=== PATIENT | female | born 1960 | race Caucasian/White ===

== ENCOUNTER 2025-03-27 00:05 | Day surgery (SDC) | payer OTHER, SELFPAY ==
[2025-03-24 10:59] VITALS: BMI 32.7
--- NOTE | 2025-03-24 11:35 | PC.NURSE ---
Spoke with patient regarding medication _eliquis_. _Patient verbalizes understanding that the last dose is to be taken on _03/24/25_ and the Endoscopist will instruct them when to restart after the procedure.
--- OUTSIDE RECORDS SUMMARY | 2025-03-27 00:07 | XMS_ITS | Clinical Summary ---
Author Organization [facility] Address [address] [place] [address] Care Team Providers Care Director Of Pupil Personnel Program Name Role Phone Gabby Núñez MD Primary Care Provider Allergies Active Allergy Reactions Criticality Noted Date Comments Cephalosporins Rash Low 06/27/2011 Medications potassium chloride CR (KLOR-CON) 8 MEQ tablet 16 mEq daily. 06/13/2022 Active metoprolol succinate ER (TOPROL-XL) 50 MG 24 hr tablet 100 mg 2 (two) times a day. 05/22/2022 Active apixaban (ELIQUIS) 5 MG tablet Take 5 mg by mouth 2 (two) times daily. Active aspirin 81 MG chewable tablet Chew 81 mg by mouth daily. Active atorvastatin (LIPITOR) 10 MG tablet Take 10 mg by mouth daily. Active losartan-hydroCH LOROthiazide 100-12.5 MG Tab Take 1 tablet by mouth daily. Active traMADol (ULTRAM) 50 MG tabletIndication s:Acute Pain < 7 Day Supply Take 1 tablet (50 mg total) by mouth every 6 (six) hours as needed for Pain. Indications : Acute Pain < 7 Day Supply 20 tablet 07/26/2022 Active Social History Tobacco Use Types Packs/Day Years Used Date Smoking Tobacco: Never Alcohol Use Standard Drinks/Week Comments Never 0 (1 standard drink = 0.6 oz pur e alcohol) Comments Unknown Sex and Gender Information Value Date Recorded Sex Assigned at Not on file Legal Sex Female 7:53 AM CDT Gender Identity Not on file Sexual Orientation Not on file Last Filed Vital Signs Vital Sign Reading Time Taken Comments Blood Pressure 168/87 09/15/2022 7:55 PM EMPLOYMENT SPECIALIST Pulse 55 09/15/2022 7:55 PM EMPLOYMENT SPECIALIST Temperature 36.8 C (98.2 F) 09/15/2022 5:39 PM EMPLOYMENT SPECIALIST Respiratory Rate 19 09/15/2022 7:55 PM EMPLOYMENT SPECIALIST Oxygen Saturation 97% 09/15/2022 7:55 PM EMPLOYMENT SPECIALIST Inhaled Oxygen Concentration - - Weight 97.5 kg (215 lb) 09/15/2022 5:39 PM EMPLOYMENT SPECIALIST Height 172.7 cm (5' 8) 09/15/2022 5:39 PM EMPLOYMENT SPECIALIST Body Mass Index 32.69 09/15/2022 5:39 PM EMPLOYMENT SPECIALIST Plan of Treatment Health Maintenance Due Date Last Done Comments Cervical Cancer Screening Pa p Smear (Age 30 to 64) Every 3 Years 1960 Colorectal Cancer Screening Colonoscopy (10 Years) 1960 Annual Physical 1963 Hepatitis C 1978 Cervical Cancer Screening Pa p with HPV Testing (Age 30 to 64) Every 5 Years 1990 Cervical Cancer Screening wi th HPV 1990 Mammogram Screening 2000 Pneumococcal Vaccine: 50+ Years (1 of 1 - PCV) 2010 COVID-19 Vaccine (3 - 2023-2 5 season) 2024 03/24/2021, 03/03/2021 DTaP, Tdap and Td Vaccines ( 2 - Tdap) 09/19/2026 09/19/2016 RSV Immunization or 60+ Years (1 - 1-dose 75+ series) 2035 Zoster Vaccines Completed 05/26/2019, 03/18/2019 Meningococcal B Vaccine Aged Out No l onger eligible based on patient's age to complete this topic Meningococcal Vaccine Aged Out No arin angelo eligible based on patient's age to complete this topic RSV Immunizations Under 20 Months Aged Out No longer eligible b ased on patient's age to complete this topic Insurance [employer] Care Teams Director Of Pupil Personnel Program Relationship Specialty Start Date End Date Gabby Núñez MD [address] [place] [address] [place] [address] PCP - General FAMILY PRACTICE 11/21/21
--- OUTSIDE RECORDS SUMMARY | 2025-03-27 00:07 | XMS_ITS | Clinical Summary ---
Author Organization [facility] [address] Address [address] [place] [address] Care Team Providers Care Roving Department End Finder Name Role Phone Gabby Núñez MD Primary Care Provider Allergies Active Allergy Reactions Criticality Noted Date Comments Cephalexin Rash Medium Medications metoprolol XL (TOPROL XL) 50 mg 24 hr tablet take 1 tablet by oral route every day 90 0 3 Active Additional Information Patient taking differently:50 mgoral 2 times daily, Reported on 12/04/2024 apixaban (ELIQUIS) 5 mg tablet take 1 tablet by oral route 2 times every day 0 0 7 Active levocetirizine (XYZAL) 5 mg tablet take 1 tablet by oral route every day in the evening 0 0 7 Active atorvastatin (LIPITOR) 10 mg tablet TAKE 1 TABLET (10MG) BY ORAL ROUTE EVERY DAY 90 0 3 Active potassium chloride ER (KLOR-CON 8) 8 mEq CR tablet TAKE 2 TABLETS (16MEQ) BY MOUTH EVERY DAY WITH FOOD 180 1 3 Active aspirin 81 mg tablet Take 1 tablet (81 mg total) by mouth daily. 30 tablet 11 8 Active amLODIPine (NORVASC) 5 mg tablet Take 1 tablet (5 mg total) by mouth daily 2 Active losartan-hydroc hlorothiazide (HYZAAR) 100-25 mg per tablet Take 1 tablet by mouth daily Active pantoprazole DR (PROTONIX) 40 mg EC tablet Take 1 tablet (40 mg total) by mouth daily Active Active Problems Problem Noted Date Diagnosed Date PAF (paroxysmal atrial fibrillation) 05/22/2018 History of stroke 01/04/2017 Overview (05/31/2017): H/O: CVA (cerebrovascular accident) History of 2 strokes when on control Assessment & Plan (05/31/2017 3:57 PM CDT): History of 2 strokes when on control 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 therapy 0 01/04/2017 Overview (03/02/2017): Chronic anticoagulation Essential (primary) hypertension 01/04/2017 Overview (03/02/2017): Essential hypertension Ventricular tachycardia 01/04/2017 Overview (03/02/2017): Ventricular tachycardia Paroxysmal tachycardia 01/04/2017 Overview (03/02/2017): Tachycardia, paroxysmal Osteoarthritis 11/29/2012 Overview (01/12/2017): DJD (degenerative joint disease) Anemia 11/29/2012 Overview (01/12/2017): Anemia Mixed hyperlipidemia 11/29/2012 Overview (01/12/2017): Hyperlipidemia Resolved Problems Problem Noted Date Diagnosed Date Resolved Date Palpitations 11/29/2012 05/16/2019 Overview (01/12/2017): Palpitations Hypertension 11/29/2012 05/31/2017 Overview (01/12/2017): Hypertension Mitral valve prolapse 11/29/20122016 Overview (01/12/2017): Mitral valve prolapse Immunizations Immunization Administration Dates Next Due Influenza, Trivalent, Preservative Free, Intramu scular 07/24/2013 Surgical History Surgery Date Site/Laterality Comments OTHER SURGICAL HISTORY Stroke: Hospitalization OTHER SURGICAL HISTORY Dysfunctional uterine bleeding (DUB): endometrial ablation NOS OTHER SURGICAL HISTORY D&C Medical History Medical History Date Comments Cerebrovascular accident (CVA) (HCC) Stroke Hx Other Medical Dysfunctional u terine bleeding (DUB) Hyperlipidemia Hyperlipidemia Osteoarthritis Osteoarthritis Hypertension Hypertension Hx Other Medical Tubal Ligation Family History Medical History Relation Name Comments Hypertension Brother 1 Hypertension; Hyperlipidemia Brother 2 Hyperlipidemi a; Stroke Brother 3 Stroke; Other Brother 4 tachycardia; Diabetes Father Diabetes mellit us; Other Father palpitations; Osteoarthritis Mother Osteoarthriti s; Rheum arthritis Sister Rheumatoid a rthritis; Relation Name Status Comments Brother 1 Brother 2 Brother 3 Brother 4 Father Mother Sister Social History Tobacco Use Types Packs/Day Years Used Date Smoking Tobacco: Never Smokeless Tobacco: Never Tobacco Cessation:Counseling Given: Not Answered Alcohol Use Standard Drinks/Week Comments Yes 0 (1 standard drink = 0.6 oz pur e alcohol) Comments Unknown Sex and Gender Information Value Date Recorded Sex Assigned at Not on file 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 Gender Identity Not on file Sexual Orientation Not on file Obstetrics History Last Filed Vital Signs Vital Sign Reading Time Taken Comments Blood Pressure 132/76 12/04/2024 9:46 AM GRASS FARM LABORER Pulse 67 12/04/2024 9:46 AM GRASS FARM LABORER Temperature 36.8 C (98.3 F) 12/17/2022 10:46 AM CDT Respiratory Rate 20 12/17/2022 10:46 AM CDT Oxygen Saturation 99% 12/04/2024 9:46 AM GRASS FARM LABORER Inhaled Oxygen Concentration - - Weight 101.6 kg (224 lb) 12/04/2024 9:46 AM GRASS FARM LABORER Height 175.3 cm (5' 9) 12/04/2024 9:46 AM GRASS FARM LABORER Body Mass Index 33.08 12/04/2024 9:46 AM GRASS FARM LABORER Plan of Treatment Health Maintenance Due Date Last Done Comments Cervical Cancer Screening 1960 Colon Cancer Screening-Colonoscopy 1960 Depression Screening 1960 Hepatitis C Screening 1960 Hepatitis B Screening 1978 Regular Well Visit/Exam 18-64 1978 Pneumococcal vaccine <65 (1 of 2 - PCV) 1979 Breast Cancer Screening-Mammogram 12/27/2013 013 Covid-19 Vaccine (2023-2 5 season) 2024 03/24/2021, 03/03/2021 Influenza Vaccine (Season Ended) 2025 07/17/2023, 08/05/2021, 07/16/2019, Additional history exists DTaP/Tdap/Td Vaccine (2 - Tdap) 09/19/2026 6 Zoster Vaccine Completed 05/26/2019, 03/18/2019 Procedures Procedure Name Priority Date/Time Associated Diagnosis Comments SCREENING MAMMOGRAM 2D BILATERAL Routine 12/27/2012 12:00 AM CDT from Last 3 Months or Most Recently Relevant to Health Maintenance Results * Screening Mammogram 2D Bilateral (12/27/2012 12:00 AM CDT) Anatomical Region Laterality Modality Breast Bilateral Mammography 12/27/2012 8:38 AM CDT Narrative 12/31/2012 9:27 AM CDT - SCREENING MAMM BI BILATERAL DIGITAL SCREENING MAMMOGRAM WITH CAD: 12/27/2012 CLINICAL: Routine screening. Patient has no complaints. Routine screening. Patient has no complaints. Comparison is made to exam dated: 04/30/2009 [facility]. The tissue of both breasts is heterogeneously dense. This may lower the sensitivity of mammography. Current study was also evaluated with a Computer Aided Detection (CAD) system. There are benign calcifications both breasts. No significant masses, calcifications, or other findings are seen in either breast. There has been no significant interval change. IMPRESSION: BENIGN There is no mammographic evidence of malignancy. A 1 year screening mammogram is recommended. The patient will be contacted by letter. Joselin Mac M.D. lmo/penrad:12/30/2012 16:10:53 letter sent: Normal Exam Mammogram BI-RADS: 2 Benign Radiologist: JOSELIN MAC MD Attending: ABIGAIL BRIGHT Requesting: ABIGAIL BRIGHT Completed Time: 12/27/2012 08:38 AM Dictated Time: N/A Transcribed Time: 12/31/2012 09:27 AM Signed by: JOSELIN MAC MD on 12/31/2012 09:27 AM Procedure Note Provider, MD Lanette - 01/28/2017 - SCREENING MAMM BI BILATERAL DIGITAL SCREENING MAMMOGRAM WITH CAD: 12/27/2012 CLINICAL: Routine screening. Patient has no complaints. Routine screening. Patient has no complaints. Comparison is made to exam dated: 04/30/2009 [facility]. The tissue of both breasts is heterogeneously dense. This may lower the sensitivity of mammography. Current study was also evaluated with a Computer Aided Detection (CAD) system. There are benign calcifications both breasts. No significant masses, calcifications, or other findings are seen in either breast. There has been no significant interval change. IMPRESSION: BENIGN There is no mammographic evidence of malignancy. A 1 year screening mammogram is recommended. The patient will be contacted by letter. Joselin Mac M.D. lmo/penrad:12/30/2012 16:10:53 letter sent: Normal Exam Mammogram BI-RADS: 2 Benign Radiologist: JOSELIN MAC MD Attending: ABIGAIL BRIGHT Requesting: ABIGAIL BRIGHT Completed Time: 12/27/2012 08:38 AM Dictated Time: N/A Transcribed Time: 12/31/2012 09:27 AM Signed by: JOSELIN MAC MD on 12/31/2012 09:27 AM Historical Provider IMG MAMMO PROCEDURES Adriana l Result from Last 3 Months or Most Recently Relevant to Health Maintenance Insurance [facility]/PPO Address: [facility] [address] [place] [address] [facility] H[facility]/PPO Address: [address] [address] Care Teams Roving Department End Finder Relationship Specialty Start Date End Date Gabby Núñez MD [address] [place] [address] PCP - General 01/05/17
--- OUTSIDE RECORDS SUMMARY | 2025-03-27 00:07 | XMS_ITS | Encounter Summary ---
Author Organization [facility] Address [address] [facility] [address] [place] [address] Care Team Providers Care Associate Partner Name Role Phone Gabby Núñez MD Primary Care Provider Encounter Details Date Type Department Care Team (Late st Contact Info) Description 01/31/2017 Orders Only [facility] ProviderLanette MD [address] [place] [address] Social History Tobacco Use Types Packs/Day Years Used Date Smoking Tobacco: Never Alcohol Use Standard Drinks/Week Comments Yes 0 (1 standard drink = 0.6 oz pur e alcohol) Comments Unknown Sex and Gender Information Value Date Recorded Sex Assigned at Not on file 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 Historical Provider CV CARDIAC SERVICES PROCE DURES Final Result * CARDIOLOGY REPORT (01/31/2017) Anatomical Region Laterality Modality Other Narrative 01/31/2017 Ordered by an unspecified provider. Historical Provider CV CARDIAC SERVICES PROCE DURES Final Result documented in this encounter Visit Diagnoses Not on filedocumented in this encounter Care Teams Associate Partner Relationship Specialty Start Date End Date Gabby Núñez MD [address] [place] [address] PCP - General 01/05/17 documented as of this encounter
--- OUTSIDE RECORDS SUMMARY | 2025-03-27 00:07 | XMS_ITS | Continuity of Care Document ---
Author Organization [facility] Address [address] [address] [place] [address] Phone Care Team Providers Care Travel Writer Name Role Phone Pillo Helm MD Unavailable Unavailable Allergies, Adverse Reactions, Alerts Substance Reaction Status Criticality CEPHALEXIN MONOHYDRATE Active No In formation Medications Medication Instructions Dosage Effective Dates (start - stop) Status Comments Lipitor 10 mg tablet take 1 tablet by oral route every day 10 MG - Active Hyzaar 100 mg-12.5 mg tablet take 1 tablet by oral route every day 1.00 tablet - Active metoprolol succinate ER 50 mg tablet,extended release 24 hr take 1 tablet by oral route every day 50 MG - Active Klor-Con 8 mEq tablet,extended release take 1 tablet by oral route 2 times every day with food 8 MEQ - Active Eliquis 5 mg tablet take 1 tablet by ora l route 2 times every day 5 MG - Active aspirin 325 mg tablet take 1 tablet by oral route every day 325 MG - Active Xyzal 5 mg tablet take 1 tablet by ora l route every day in the evening 5 MG - Active Procedures Procedure Date Monovisc inj per dose DRAIN/INJECT JOINT/BURSA POSTOP FOLLOW-UP VISIT RADEX KNE 3 VIEWS Betamethasone acet&sod phosp Drugs unclassified injection DRAIN/INJECT JOINT/BURSA OFFICE/OUTPATIENT VISIT EST Methylprednisolone 40mg/ml inj 19 Drugs unclassified injection DRAIN/INJECT JOINT/BURSA OFFICE/OUTPATIENT VISIT EST OFFICE/OUTPATIENT VISIT EST Methylprednisolone 40mg/ml inj 19 Drugs unclassified injection DRAIN/INJECT JOINT/BURSA OFFICE/OUTPATIENT VISIT NEW Advance Directives Directive Yes / No Effective Date File Name No Information Encounters Encounter Description Practice Location Reason(s) For Visit Diagnoses Date Provider Providers Copied on Encounter [facility], [address] [address], [place], [address], [place] tel:[phone] [facility] No Information 3 Alicja Ferro. [address] [facility], [place], [place], [id number]. tel:[phone] [facility], [address], [address], [place] tel:[phone] [facility] Primary osteoarthritis of right knee 2 [address]. [address], [id number]. tel:[phone] Referring Provider: Gabby Diana, [facility] [employer] [place], [place], [facility]. tel:[phone] OFFICE/OUTPAT IENT VISIT EST [facility], [address], [address], [place] tel:[phone] [facility] Primary osteoarthritis of right kneeBody mass index [BMI] 28.0-28.9, adult 2 [address]. [address], [id number]. tel:[phone] Referring Provider: Gabby Diana, [facility] [employer] [place], [place], [place], [facility]. tel:[phone] OFFICE/OUTPAT IENT VISIT EST [facility], [address], [address], [place] tel:[phone] [facility] Primary osteoarthritis of right knee [address] [address] [place], [place], [id number]. tel:[phone] OFFICE/OUTPAT IENT VISIT EST [facility], [address] [address], [place], [address], [place] tel:[phone] [facility] Primary osteoarthritis of right knee Dec- 9 [address]aja. [address] [facility] [place], [place], [id number]. tel:[phone] OFFICE/OUTPAT IENT VISIT NEW [facility], [address] [facility] [address], [place], [address], [place] tel:[phone] [facility] Effusion of right knee jointPrimary osteoarthritis of right kneeBody mass index (BMI) 31.0-31.9, adult 9 [address] [address] [facility], [place], [place], [id number]. tel:[phone] Referring Provider: Gabby Diana, [address] [place] [address], [address]. tel:[phone] Family History Family Member Type Diagnosis Age At Onset Father Problem (finding) hypertension Father Problem (finding) stroke Mother Problem (finding) Alive and well Payers Payer name Insurance type Covered alliance party ID Authordevona criselda(s) Josefa Open Access Plus E2 OT [id number] Social History Type Description Quantity Date Captured Comments Alcohol Use Details Unknown Caffeine Use Details Unknown Tobacco Use Status No Information Smoking Status Tobacco smoking cons umption unknown Sex Female Chief Complaint And Reason For Visit No Information Reason For Referral Reason For Referral No Information Plan Of Treatment Date Type Action Status Referral Ordered: INJECTION RT knee Appointment date/timeframe: 12/08/2021 ordered Referral Ordered: JERADEX TYSON 3 VIEWS RT ordered History Of Present Illness Encounter Date Complaint History Of Prese nt Illness No Information Functional Status Date Functional Assessmen t No Information Instructions Date Instruction Additional Infor ba Apply ice 20 min per hour Relate d to Primary osteoarthritis of right knee Giving encouragement to exercise Related to Body mass index [BMI] 28.0-28.9, adult Apply ice 20 min per hour Relate d to Primary osteoarthritis of right knee Giving encouragement to exercise Related to Body mass index (BMI) 31.0-31.9, adult Assessments Type Assessment Date No Information Patient Care Teams Name Effective Dates (start - stop) Status Members No Information
--- OUTSIDE RECORDS SUMMARY | 2025-03-27 00:07 | XMS_ITS | Referral Summary ---
Author Organization [facility] [address] Address [address] [place] [address] Care Team Providers Care Graduate Recruiter Name Role Phone Gabby Núñez MD Primary [...] of 2 strokes when on control pills poiser current use of anticoagulant therapy 0 01/04/2017 [...] Influenza, Trivalent, Preservative Free, Intramu scular 07/24/2013 Social History Tobacco Use Types Packs/Day Years Used Date Smoking Tobacco: Never Smokeless Tobacco: Never Tobacco Cessation:Counseling Given: Not Answered Alcohol Use Standard Drinks/Week Comments Yes 0 (1 standard drink = 0.6 oz pur e alcohol) Comments Unknown Sex and Gender Information Value Date Recorded Sex Assigned at Not on file 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 Gender Identity Not on file Sexual Orientation Not on file Last Filed Vital Signs Vital Sign Reading Time Taken Comments Blood Pressure 132/76 12/04/2024 9:46 AM NETWORK CONTROL OPERATORS SUPERVISOR Pulse 67 12/04/2024 9:46 AM NETWORK CONTROL OPERATORS SUPERVISOR Temperature 36.8 C (98.3 F) 12/17/2022 10:46 AM CDT Respiratory Rate 20 12/17/2022 10:46 AM CDT Oxygen Saturation 99% 12/04/2024 9:46 AM NETWORK CONTROL OPERATORS SUPERVISOR Inhaled Oxygen Concentration - - Weight 101.6 kg (224 lb) 12/04/2024 9:46 AM NETWORK CONTROL OPERATORS SUPERVISOR Height 175.3 cm (5' 9) 12/04/2024 9:46 AM NETWORK CONTROL OPERATORS SUPERVISOR Body Mass Index 33.08 12/04/2024 9:46 AM NETWORK CONTROL OPERATORS SUPERVISOR Plan of Treatment Not on file Procedures Procedure Name Priority Date/Time Associated Diagnosis [...] Comparison is made to exam dated: 04/30/2009 [facility]. The tissue of both breasts is heterogeneously [...] patient will be contacted by letter. Joselin birch/da:12/30/2012 16:10:53 letter sent: Normal Exam Mammogram BI-RADS: [...] Comparison is made to exam dated: 04/30/2009 [facility]. The tissue of both breasts is heterogeneously [...] Most Recently Relevant to Health Maintenance Insurance [facility] H[facility]/PPO Address: [address] [place] [phone] [facility] H[facility]/PPO Address: [address] [address] Care Teams Graduate Recruiter Relationship Specialty Start Date End Date Gabby Núñez MD [address] [place] [address] PCP - General 01/05/17
--- OUTSIDE RECORDS SUMMARY | 2025-03-27 00:07 | XMS_ITS | Clinical Summary ---
Author Organization [facility] Address [address] [place] [id number] Phone Care Team Providers Care Dry Man Name Role Phone Gabby Núñez MD Primary Care Provider Allergies Active Allergy Reactions Criticality Noted Date Comments Cephalexin Rash Low 03/17/2021 Medications apixaban (Eliquis) 5 mg tablet Take 5 mg by mouth 2 times daily. Active aspirin (SALIMA CHEWABLE) 81 mg Tablet, Chewable Take 81 mg by mouth daily. Active losartan-hydroCH LOROthiazide (HYZAAR) 100-12.5 mg tablet Take 1 Tablet by mouth daily. Active metoprolol tartrate (LOPRESSOR) 50 mg tablet Take 50 mg by mouth daily. Active atorvastatin (LIPITOR) 10 mg tablet Take 10 mg by mouth daily. Active potassium chloride (KLOR-CON) 8 mEq Extended Release tablet Take 16 mEq by mouth daily. Active levocetirizine (Xyzal) 5 mg tablet Take 5 mg by mouth late in the day. Active amLODIPine (NORVASC) 5 mg tablet Take 5 mg by mouth daily. Active Encounters Date Type Department Care Team Description 03/03/2025 External Device Data [facility] Provider, Abstract 02/24/2025 External Device Data [facility] Provider, Abstract from Last 3 Months Family History Medical History Relation Name Comments Colon Cancer Neg Hx Social History Tobacco Use Types Packs/Day Years Used Date Smoking Tobacco: Never Smokeless Tobacco: Never Alcohol Use Standard Drinks/Week Comments Yes 0 (1 standard drink = 0.6 oz pur e alcohol) rare Feeling Safe Answer Date Recorded Are you in a relationship wi th someone who hurts you emotionally and/or physically? No 05/08/2024 Comments No Sex and Gender Information Value Date Recorded Sex Assigned at Not on file Legal Sex Female 9:08 AM CDT Gender Identity Not on file Sexual Orientation Not on file Last Filed Vital Signs Vital Sign Reading Time Taken Comments Blood Pressure 105/60 05/08/2024 10:13 AM CDT Pulse 54 05/08/2024 10:13 AM CDT Temperature 36.1 C (97 F) 05/08/2024 9:57 AM CDT Respiratory Rate 18 05/08/2024 10:13 AM CDT Oxygen Saturation 100% 05/08/2024 10:13 AM CDT Inhaled Oxygen Concentration - - Weight 95.7 kg (211 lb) 05/08/2024 9:15 AM CDT Height 175.3 cm (5' 9) 05/08/2024 9:15 AM CDT Body Mass Index 31.16 05/08/2024 9:15 AM CDT Plan of Treatment Health Maintenance Due Date Last Done Comments Pre-Diabetes and Diabetes Screening 1960 DTAP/TDAP/TD VACCINES (1 - Tdap) 1979 HPV/Cotest (21-29) 1981 CERVICAL CANCER SCREENING 1990 HPV/Cotest (30-65) 1990 PAP SMEAR 1990 FIT-DNA Q 3 years 2005 FIT/FOBT Q 1 year 2005 Flex Sig/CT Colonography Q 5 years 2005 ZOSTER VACCINE (1 of 2) 2010 BREAST CANCER SCREENING 12/27/2013 12/27/2012 INFLUENZA VACCINE (#1) 2024 07/24/2013 COLORECTAL SCREENING 05/08/2029 05/08/2024, 05/08/2024, 03/23/2021, Additional history exists Colorectal Cancer Screening 05/08/2029 RSV VACCINE (60+ or ) (1 - 1-dose 75+ series) 2035 Procedures Procedure Name Priority Date/Time Associated Diagnosis Comments COLONOSCOPY REPORT 05/08/2024 9: 57 AM CDT from Last 3 Months or Most Recently Relevant to Health Maintenance Results * COLONOSCOPY REPORT (05/08/2024 9:57 AM CDT) Narrative Procedure Note Reese Hampton MD - 05/08/2024 9:57 AM CDT [facility] Endoscopy Patient Name: Thea Tavarez Procedure Date: 05/08/2024 Date of : 1960 Attending MD: Reese Hampton MD, Procedure: Colonoscopy Indications: High risk colon cancer surveillance: Personal history of adenoma (10 mm or greater in size) Patient Profile: 63y/oF here for surveillance colonoscopy, 1.3cm adenoma in 2020. No known FMHx colon CA. Providers: Reese Hampton MD Referring MD: Gabby Núñez MD Medicines: Monitored Anesthesia Care Complications: No immediate complications. Procedure: Informed consent was obtained for the procedure, including moderate sedation after risks were discussed. Based on the pre-procedure assessment, including review of the patient's medical history, medications, allergies, and review of systems, the patient was deemed to be an appropriate candidate for sedation. A timeout was performed. Continuous ECG monitoring, pulse oximetry, blood pressure monitoring, and direct observation were performed. The Colonoscope was introduced through the anus and advanced to the cecum, identified by appendiceal orifice and ileocecal valve. The colonoscopy was performed without difficulty. The patient tolerated the procedure well. The quality of the bowel preparation was good. The ileocecal valve, appendiceal orifice, and rectum were photographed. Estimated Blood Loss: Estimated blood loss: none. Findings: Hemorrhoids were found on perianal exam. A single (solitary) fifteen mm ulcer was found in the cecum. No bleeding was present. No stigmata of recent bleeding were seen, however an area of central granular tissue/necrosis was seen. Biopsies were taken with a cold forceps for histology. A 3 mm polyp was found in the ascending colon. The polyp was sessile. The polyp was removed with a cold snare. Resection and retrieval were complete. Many large-mouthed and small-mouthed diverticula were found in the sigmoid colon. Internal hemorrhoids were found during retroflexion. The hemorrhoids were small. The exam was otherwise without abnormality. Impression: - Hemorrhoids found on perianal exam. - A single (solitary) ulcer in the cecum. Biopsied. - One 3 mm polyp in the ascending colon, removed with a cold snare. Resected and retrieved. - Diverticulosis in the sigmoid colon. - Internal hemorrhoids. - The examination was otherwise normal. Recommendation: - Patient has a contact number available for emergencies. The signs and symptoms of potential delayed complications were discussed with the patient. Return to normal activities tomorrow. Written discharge instructions were provided to the patient. - Discharge patient to home (ambulatory). - Resume previous diet. - Continue present medications. - OK TO START ASA TODAY. - OK TO RESTART ELIQUIS SUNDAY EVENING 05/10. - Repeat colonoscopy in 5 years for surveillance. - If biopsies of cecal ulcer suggest ischemia, will order CTA for vascular analysis. - I will call you to discuss pathology next week. Reese Hampton MD 05/08/2024 9:57:15 AM This report has been signed electronically. Number of Addenda: [address]; [place] [address] Reese Hampton MD GI PROCEDURE ORDERABLES Adriana l Result from Last 3 Months or Most Recently Relevant to Health Maintenance Insurance [employer] PPO [id number] Advance Directives For more information, please contact: [phone] * Full Code (Latest Code Status on File) Date Activated Date Inactivated Comments 05/08/2024 9:24 AM 05/08/2024 12:48 PM Care Teams Dry Man Relationship Specialty Start Date End Date Gabby Núñez MD [address] [place] [address] PCP - General Family Practice 02/18/21
[2025-03-27 08:38] VITALS: BP 151/92; PULSE 51; RESP 16; TEMP 36.7; O2SAT 100; BMI 29.7
[2025-03-27] MEDS: LACTATED RINGERS 1,000 ML 150 ML IV CONT (08:48)
--- NOTE | 2025-03-27 09:03 | P.PNAN_ITS ---
Anes - Initial Pre Proc Eval Procedure: Operation Date: 03/27/25 10:00 Proposed Procedures p Esophagogastroduodenoscopy - Emmanuel Briscoe MD Date/Time: 03/27/25 09:03 Surgeon: Emmanuel Briscoe MD Pre Op Diagnosis: Gastritis, unspecified, without bleeding Patient Data Age: 64 Gender: F Height: 1.73 m Weight: 88.7 kg Last Vital Signs Temp 98.0 F 03/27/25 08:38 Pulse 51 L 03/27/25 08:38 Resp 16 03/27/25 08:38 BP 151/92 H 03/27/25 08:38 Pulse Ox 100 03/27/25 08:38 O2 Del Method Room Air 03/27/25 08:38 Allergies Allergy/AdvReac Type Severity Reaction Status Date / Time cephalexin Allergy Unknown Rash Verified 03/27/25 08:36 Home Medications ?Medication ?Instructions ?Recorded ?Confirmed ?Type amlodipine 5 mg tablet 5 mg PO DAILY 03/24/25 03/27/25 History apixaban 5 mg tablet (Eliquis) 5 mg PO Q12H 03/24/25 03/27/25 History aspirin 81 mg capsule 81 mg PO DAILY 03/24/25 03/27/25 History atorvastatin 10 mg tablet 10 mg PO QPM 03/24/25 03/27/25 History levocetirizine 5 mg tablet (24HR 5 mg PO HS 03/24/25 03/27/25 History Allergy Relief) losartan 100 1 tablet PO DAILY 03/24/25 03/27/25 History mg-hydrochlorothiazide 12.5 mg tablet metoprolol succinate 50 mg 50 mg PO Q12H 03/24/25 03/27/25 History tablet,extended release 24 hr pantoprazole 40 mg tablet,delayed 40 mg PO DAILY 03/24/25 03/27/25 History release potassium chloride 8 mEq 16 meq PO QAM 03/24/25 03/27/25 History tablet,extended release Patient hx anesthesia problems: none Family hx anesthesia problems: none Results Review: All pre-operative results and documents have been reviewed as part of the pre- operative evaluation. PMFSH Social History Social History Smoking status: Never smoker Alcohol intake: current Substance use: never Living arrangements: with family Spiritual care concerns: No Anes - Eval Final PreProcedure Day of Procedure 03/27/25 09:03 Patient weight: obese Heart: regular rate and rhythm Lungs: clear to auscultation Airway: Mallampati scale class II Neurological: alert and oriented Last oral intake: >/= 8 hours ASA classification: III Emergent: no Anesthetic plan: proceed Anesthesia type and monitoring: general GIVS and standard monitoring Results Review: All pre-operative results and documents have been reviewed as part of the pre- operative evaluation. Informed Consent: The patient's anesthetic plan and its attendant risks and benefits were discussed with the patient/family/POA. Questions were solicited and answers provided to the satisfaction of the patient/family/POA.
--- NOTE | 2025-03-27 09:39 | PM.HPGS ---
History of Present Illness History of Present Illness Consent: Risks, benefits, and alternatives have been discussed and questions answered. Patient agrees to proceed with procedure. Chief complaint: Gastritis, unspecified, without bleeding Narrative: Cheryl Ybarra is a 64 year old female here with epigastric pain, started on pantoprazole by pcp, never had egd Review of Systems Review of Systems: All systems reviewed & are unremarkable except as noted in HPI and below PMFSH Past Medical History Medical History (Updated 03/27/25 @ 09:40 by Emmanuel Briscoe MD) Epigastric pain Social History Social History Smoking status: Never smoker Alcohol intake: current Substance use: never Living arrangements: with family Spiritual care concerns: No Meds Home Medications and Allergies Home Medications ?Medication ?Instructions ?Recorded ?Confirmed ?Type amlodipine 5 mg tablet 5 mg PO DAILY 03/24/25 03/27/25 History apixaban 5 mg tablet (Eliquis) 5 mg PO Q12H 03/24/25 03/27/25 History aspirin 81 mg capsule 81 mg PO DAILY 03/24/25 03/27/25 History atorvastatin 10 mg tablet 10 mg PO QPM 03/24/25 03/27/25 History levocetirizine 5 mg tablet (24HR 5 mg PO HS 03/24/25 03/27/25 History Allergy Relief) losartan 100 1 tablet PO DAILY 03/24/25 03/27/25 History mg-hydrochlorothiazide 12.5 mg tablet metoprolol succinate 50 mg 50 mg PO Q12H 03/24/25 03/27/25 History tablet,extended release 24 hr pantoprazole 40 mg tablet,delayed 40 mg PO DAILY 03/24/25 03/27/25 History release potassium chloride 8 mEq 16 meq PO QAM 03/24/25 03/27/25 History tablet,extended release Allergies Allergy/AdvReac Type Severity Reaction Status Date / Time cephalexin Allergy Unknown Rash Verified 03/27/25 08:36 Vital Signs Vital Signs - 24 hr 03/27/25 08:38 Temperature 98.0 F Pulse Rate 51 L Respiratory Rate 16 Blood Pressure 151/92 H Pulse Oximetry 100 Oxygen Delivery Room Air Exam Const: General: comfortable and no acute distress HENMT: Face/Nose/Sinus: Normal nares present Eyes: General: appearance normal, both eyes and all related structures Neck: Neck: no JVD Resp: Auscultation: clear to auscultation bilaterally Cardio: Rate: regular rate Rhythm: regular rhythm GI: Inspection: non-distended GI Palp: Yes Soft to palpation Skin: General skin exam: normal color Neuro: Speech: normal speech Extrem: General: normal to inspection Psych: Mental Status: mental status grossly normal Assessment and Plan Assessment and plan (1) Epigastric pain: Code(s): R10.13 - Epigastric pain Status: Acute Assessment and Plan: egd with bx
--- NOTE | 2025-03-27 09:50 | S_PTH ---
PATIENT: Cheryl Ybarra LOC: [facility]#:[id number] AGE/SX: 64/F ROOM: RE03/27/[address]: Emmanuel Briscoe MD : 1960 BED: DIS: 03/27/2025 SPEC #: [id number] RECD: 03/27/25 11:46 STATUS: SMITHA REBOLLAR #: [id number] ABILIO: 03/27/25 09:[address]: Emmanuel Briscoe DEPT: [facility] Surgical RECD BY: Nidia Hutchison ENTERED: 03/27/25 11:46 SP TYPE: Surgical OTHR DR: Logan Juarez, PA Tissues: A - Gastric Biopsy Procedures: Hematoxylin and Eosin Stain Gross and Microscopic Level 4
[2025-03-27 09:53] VITALS: BP 110/66; PULSE 54; RESP 12; O2SAT 98
[2025-03-27 10:03] VITALS: BP 118/65; PULSE 55; RESP 13; O2SAT 100
[2025-03-27 10:13] VITALS: BP 116/74; PULSE 50; RESP 14; O2SAT 100
== END 2025-03-27 10:26 | disposition home or self-care (01) ==
PROVIDERS: PCP Student in an Organized Health Care Education/Training Program; Referring Provider Student in an Organized Health Care Education/Training Program; Visit Provider Internal Medicine Gastroenterology
PROC: 0DJ08ZZ Inspection of Upper Intestinal Tract, Via Natural or Artificial Opening Endoscopic (ICD-10-PCS; CPT 43239; principal; 2025-03-27 10:00)
DX: R10.13 Epigastric pain (principal); E66.9 Obesity, unspecified; Z68.29 Body mass index [BMI] 29.0-29.9, adult
CPT/HCPCS: 43239; 88305; J2003; J2704; J7120